=== PATIENT | male | born 1935 | race Caucasian/White ===

== ENCOUNTER → 2016-12-29 | Outpatient (CLI) | payer MEDICARE, OTHER ==
[~2016-12-29] MED LIST: APRACLONIDINE 1% 0.1 ML OPH ONE; LISI20TA11 PO; OPHTHALMIC IRRIG SOLUTION 120 ML ONE; PHENYLephrine 10% 5 ML OPH ONE; PROPARACAINE 0.5% 15 ML OPH ONE; SITA50TA2 PO; TROPICAMIDE 1% 3 ML OPH ONE; ZOC20 PO
== END | disposition home or self-care (01) ==
LOC: RAD 08:39
PROVIDERS: ATTEND Ophthalmology
DX: H26.9 Unspecified cataract (principal)